=== PATIENT | female | born 1985 | race Caucasian/White ===

== ENCOUNTER 2019-06-23 11:56 | Day surgery (SDC) | payer OTHER ==
[2019-06-22 15:58] LABS: BASOPHILS ABSOLUTE AUTO 0.02 K/mm3 (0.00-0.23); BASOPHILS PERCENT AUTO 0 % (0-2); EOSINOPHILS ABSOLUTE AUTO 0.28 K/mm3 (0.00-0.68); EOSINOPHILS PERCENT AUTO 5 % (0-6); Hematocrit 35.1 % (33.0-51.0); Hemoglobin 11.8 g/dL (11.5-16.0); IMMATURE GRAN ABSOLUTE AUTO 0.01 K/mm3 (0.00-0.10); IMMATURE GRAN PERCENT AUTO 0 % (0-1); LYMPHOCYTES ABSOLUTE AUTO 1.82 K/mm3 (0.84-5.20); LYMPHOCYTES PERCENT AUTO 30 % (21-46); MONOCYTES ABSOLUTE AUTO 0.43 K/mm3 (0.16-1.47); MONOCYTES PERCENT AUTO 7 % (4-13); Mean Corpuscular HGB 29.6 pg (26.0-34.0); Mean Corpuscular HGB Conc 33.6 g/dL (31.5-36.5); Mean Corpuscular Volume 88 fL (80-100); Mean Platelet Volume 11.2 fL (9.1-12.4); NEUTROPHILS ABSOLUTE AUTO 3.49 K/mm3 (1.96-9.15); NEUTROPHILS PERCENT AUTO 58 % (41-73); Platelet Count 178 K/mm3 (150-400); RDW Coefficient Variation 14.3 % (11.7-14.2); RDW Standard Deviation 45.5 fL (35.1-46.3); Red Blood Cell Count 3.98 M/mm3 (3.80-5.20); White Blood Cell Count 6.05 K/mm3 (4.00-11.30)
[~2019-06-23] VITALS: Ht 149.9 cm; Wt 64.0 kg
[~2019-06-23 11:56] MED LIST: PRAZ1 PO; PRENATAL TABLE1 EAC2 PO; Venlafaxine HCl75 M1 PO
--- NOTE | 2019-06-23 12:52 | NUR ---
Ambulatory in Day Surgery. History, Chart, Medications and Allergies reviewed before start of procedure. Lungs clear T/O to Auscultation. Patient confirms NPO status and agrees with scheduled surgery. Pre-Op teaching done. Pt verbalizes understanding. Patient States Post-Procedure ride home has been arranged.
--- NOTE | 2019-06-23 14:50 | NUR ---
06/23/19 1450 Teto Peralta IV INFILTRATED IN LEFT AC. A NEW IV WAS STARTED BY THIS RN IN RIGHT WRIST 18G. PT TOLERATED THIS WELL.
--- NOTE | 2019-06-23 16:17 | NUR ---
PT UP TO VOID WITHOUT DIFFICULTY.Patient up to Ambulate independently. Gait steady. Discharge instructions reviewed with patient. Patient verbalizes understanding. Copy given to patient to take home. Dressing to procedure site clean, dry, intact with no visible drainage, swelling, erythema or bruising noted. Patient States Post-Procedure ride home has been arranged. Discharged via wheelchair to private car for ride home. ALL BELONINGS RETURNED TO PATIENT.
[2019-07-21] MEDS ORDERED: VENLAFAXINE HC150 MG PO (14:06)
[2019-07-21] MEDS ORDERED: [UNRECOGNIZED DRUG - OTHER] PO (14:06)
[2019-07-21] MEDS ORDERED: PRAZ5 PO (14:06)
[2019-07-21] MEDS ORDERED: PRAZ1 PO (14:07)
== END 2019-06-23 22:59 | disposition home or self-care (01) ==
LOC: ORSCMMR 11:56
PROVIDERS: Obstetrics & Gynecology
PROC: 10A07Z6 Abortion of Products of Conception, Vacuum, Via Natural or Artificial Opening (ICD-10-PCS; principal; 2019-06-23 13:45)
DX: O02.1 Missed abortion (principal); J45.909 Unspecified asthma, uncomplicated; F17.210 Nicotine dependence, cigarettes, uncomplicated; Z79.899 Other long term (current) drug therapy
CPT/HCPCS: 36415; 85025; 86850; 86900; 86901; 88305; J0690; J1100; J1885; J2210; J2250; J2405; J2704; J3010; J7120

== ENCOUNTER 2019-08-02 10:54 | Day surgery (SDC) | payer OTHER ==
[~2019-08-02] VITALS: Ht 149.9 cm; Wt 63.3 kg
[~2019-08-02 10:54] MED LIST changes: +PRAZ5 PO; +VENLAFAXINE HC150 MG PO; +[UNRECOGNIZED DRUG - OTHER] PO
--- NOTE | 2019-08-02 13:03 | NUR ---
08/02/19 1302 Irais Baltazar [facility].JAR LOWER PREP-POG ORSC.JJW UPPER PREP DURAPREP
--- NOTE | 2019-08-02 14:19 | NUR ---
08/02/19 1419 Sandy Munguia PT TRANSFERRED FROM [facility] TO [facility] WITHOUT DIFFICULTY. PT TOLERATING PO FLUIDS. PAIN TOLERABLE AFTER 2 DOSES OF FENTANYL 25MG. CALLING PATIENT'S FAMILY AT THIS TIME FOR RIDE HOME.
== END 2019-08-02 14:54 | disposition home or self-care (01) ==
LOC: ORSCSDS 10:54
PROVIDERS: Obstetrics & Gynecology
PROC: 0UT74ZZ Resection of Bilateral Fallopian Tubes, Percutaneous Endoscopic Approach (ICD-10-PCS; principal; 2019-08-02 12:15)
DX: Z30.2 Encounter for sterilization (principal); N80.3 Endometriosis of pelvic peritoneum; K66.0 Peritoneal adhesions (postprocedural) (postinfection); J45.909 Unspecified asthma, uncomplicated; F17.210 Nicotine dependence, cigarettes, uncomplicated; F43.10 Post-traumatic stress disorder, unspecified; Z79.899 Other long term (current) drug therapy
CPT/HCPCS: 84703; 88302; J0171; J0690; J1100; J1885; J2250; J2405; J2704; J2710; J3010; J7120

== ENCOUNTER → 2020-03-13 | Outpatient (CLI) | payer OTHER ==
[2020-03-13 13:32] LABS: BASOPHILS ABSOLUTE AUTO 0.04 K/mm3 (0.00-0.23); BASOPHILS PERCENT AUTO 1 % (0-2); EOSINOPHILS ABSOLUTE AUTO 0.26 K/mm3 (0.00-0.68); EOSINOPHILS PERCENT AUTO 5 % (0-6); Hematocrit 36.2 % (33.0-51.0); Hemoglobin 11.5 g/dL (11.5-16.0); IMMATURE GRAN ABSOLUTE AUTO 0.01 K/mm3 (0.00-0.10); IMMATURE GRAN PERCENT AUTO 0 % (0-1); LYMPHOCYTES ABSOLUTE AUTO 2.06 K/mm3 (0.84-5.20); LYMPHOCYTES PERCENT AUTO 38 % (21-46); MONOCYTES ABSOLUTE AUTO 0.42 K/mm3 (0.16-1.47); MONOCYTES PERCENT AUTO 8 % (4-13); Mean Corpuscular HGB 26.2 pg (26.0-34.0); Mean Corpuscular HGB Conc 31.8 g/dL (31.5-36.5); Mean Corpuscular Volume 83 fL (80-100); Mean Platelet Volume 11.2 fL (9.1-12.4); NEUTROPHILS ABSOLUTE AUTO 2.66 K/mm3 (1.96-9.15); NEUTROPHILS PERCENT AUTO 49 % (41-73); Platelet Count 272 K/mm3 (150-400); RDW Coefficient Variation 14.4 % (11.7-14.2); RDW Standard Deviation 43.1 fL (35.1-46.3); Red Blood Cell Count 4.39 M/mm3 (3.80-5.20); White Blood Cell Count 5.45 K/mm3 (4.00-11.30)
[2020-03-13 14:45] LABS: Very Low Density Lipoprot Chol 39 mg/dL (6-28)
[2020-03-13 15:06] LABS: Alanine Aminotransfer (ALT/SGP 17 U/L (12-78); Albumin, Blood 3.6 g/dL (3.4-5.0); Albumin/Globulin Ratio 0.9 (0.8-1.8); Alk Phos 90 U/L (50-136); Anion Gap 6 mmol/L (6-16); Aspartate Aminotrans (AST/SGOT 13 U/L (12-37); Bilirubin, Total 0.2 mg/dL (0.1-1.0); Blood Urea Nitrogen 15 mg/dL (8-24); Bun/Creatinine Ratio 25.4 (12.0-20.0); CHOL/HDL RATIO 4.9; CO2, Blood 23 mmol/L (21-32); Calcium, Blood 8.5 mg/dL (8.5-10.1); Chloride, Blood 109 mmol/L (98-108); Cholesterol 163 mg/dL (50-200); Creatinine, Blood 0.59 mg/dL (0.40-1.00); Globulin, Blood 4.1 g/dL (2.2-4.0); Glomerular Filtration Rate >60 (60-); Glucose, Blood 85 mg/dL (70-99); HDL Cholesterol 33 mg/dL (>39); LDL/HDL RATIO 2.7; Low Density Lipoprotein Chol 91 mg/dL (0-110); Potassium, Blood 4.1 mmol/L (3.5-5.5); Sodium, Blood 138 mmol/L (136-145); Total Protein, Blood 7.7 g/dL (6.4-8.2); Triglycerides 197 mg/dL (30-140)
== END ==
LOC: LAB SHORT 12:51 → LAB 12:51
PROVIDERS: Physician Assistant
DX: Z13.29 Encounter for screening for other suspected endocrine disorder (principal); E78.5 Hyperlipidemia, unspecified; F32.9 Major depressive disorder, single episode, unspecified
CPT/HCPCS: 80053; 80061; 82306; 84443; 85025

== ENCOUNTER 2022-06-02 21:48 | Emergency (ER) | payer BC ==
[~2022-06-02] VITALS: Ht 149.9 cm; Wt 63.5 kg
[2022-06-02] MEDS ORDERED: Percocet 5-3251 EACH PO (23:34)
[2022-06-02] MEDS ORDERED: CRUTCH2 XX (23:36)
== END 2022-06-03 | disposition home or self-care (01) ==
LOC: ER 21:48
DX: S82.51XA Displaced fracture of medial malleolus of right tibia, initial encounter for closed fracture (principal); F17.200 Nicotine dependence, unspecified, uncomplicated; X58.XXXA Exposure to other specified factors, initial encounter; Z79.899 Other long term (current) drug therapy
CPT/HCPCS: A9270

== ENCOUNTER 2022-06-07 11:33 | Day surgery (SDC) | payer BC, OTHER ==
[~2022-06-07] VITALS: Ht 149.9 cm; Wt 62.7 kg
[~2022-06-07 11:33] MED LIST changes: +CRUTCH2 XX; +Percocet 5-3251 EACH PO
[2022-06-07] MEDS ORDERED: Prozac40 MG PO (12:28)
[2022-06-07] MEDS ORDERED: IBUP400 PO (12:29)
--- NOTE | 2022-06-07 13:15 | NUR ---
06/07/22 1315 Federico Jane ROPIVACAINE 0.5% 30 MLS MIXED & VERIFIED IN OR BY RN W/ 0.15 ML EPI PER ORDER TO MAKE ROPIVACAINE 0.5% 1:200,000 FOR INJECTION AT OPSITE BY DR BERGERON. 30 MLS INJECTED.
--- NOTE | 2022-06-07 15:52 | NUR ---
06/07/22 1552 Reg Townsend A TOTAL OF 75 MCG FENTANYL PIVEN FOR PAIN CONTROL PRIOR TO DISCHARGE - SEE VS.
== END 2022-06-07 15:54 | disposition home or self-care (01) ==
LOC: ORSCSDS 11:33
PROVIDERS: Podiatrist Foot & Ankle Surgery
PROC: 0QSJ04Z Reposition Right Fibula with Internal Fixation Device, Open Approach (ICD-10-PCS; principal; 2022-06-07 13:00)
PROC: 0QSG04Z Reposition Right Tibia with Internal Fixation Device, Open Approach (ICD-10-PCS; principal; 2022-06-07 13:00)
DX: S82.841A Displaced bimalleolar fracture of right lower leg, initial encounter for closed fracture (principal); J45.909 Unspecified asthma, uncomplicated; F17.210 Nicotine dependence, cigarettes, uncomplicated; Z86.16 Personal history of COVID-19; F41.8 Other specified anxiety disorders; Z79.899 Other long term (current) drug therapy
CPT/HCPCS: A9270; C1713; C1769; J0171; J0690; J1100; J1885; J2250; J2405; J2704; J2795; J3010; J7120

== ENCOUNTER → 2023-05-09 | Outpatient (CLI) | payer BC ==
[~2023-05-09] MED LIST changes: +IBUP400 PO; +Prozac40 MG PO
[2023-05-09 06:39] LABS: BASOPHILS ABSOLUTE AUTO 0.03 K/mm3 (0.00-0.23); BASOPHILS PERCENT AUTO 0 % (0-2); EOSINOPHILS ABSOLUTE AUTO 0.27 K/mm3 (0.00-0.68); EOSINOPHILS PERCENT AUTO 4 % (0-6); Hematocrit 31.9 % (33.0-51.0); IMMATURE GRAN ABSOLUTE AUTO 0.01 K/mm3 (0.00-0.10); IMMATURE GRAN PERCENT AUTO 0 % (0-1); LYMPHOCYTES ABSOLUTE AUTO 2.51 K/mm3 (0.84-5.20); LYMPHOCYTES PERCENT AUTO 37 % (21-46); MONOCYTES ABSOLUTE AUTO 0.51 K/mm3 (0.16-1.47); MONOCYTES PERCENT AUTO 8 % (4-13); Mean Corpuscular HGB 23.5 pg (26.0-34.0); Mean Corpuscular HGB Conc 31.3 g/dL (31.5-36.5); Mean Corpuscular Volume 75 fL (80-100); Mean Platelet Volume 10.4 fL (9.1-12.4); NEUTROPHILS ABSOLUTE AUTO 3.38 K/mm3 (1.96-9.15); NEUTROPHILS PERCENT AUTO 51 % (41-73); Platelet Count 271 K/mm3 (150-400); RDW Coefficient Variation 16.7 % (11.7-14.2); RDW Standard Deviation 45.1 fL (35.1-46.3); Red Blood Cell Count 4.26 M/mm3 (3.80-5.20); White Blood Cell Count 6.71 K/mm3 (4.00-11.30)
[2023-05-09 07:03] LABS: Alanine Aminotransfer (ALT/SGP 20 U/L (12-78); Albumin, Blood 3.6 g/dL (3.4-5.0); Albumin/Globulin Ratio 0.9 (0.8-1.8); Alk Phos 95 U/L (50-136); Anion Gap 4 mmol/L (6-16); Aspartate Aminotrans (AST/SGOT 18 U/L (12-37); Bilirubin, Total 0.1 mg/dL (0.1-1.0); Blood Urea Nitrogen 13 mg/dL (8-24); Bun/Creatinine Ratio 17.1 (12.0-20.0); CHOL/HDL RATIO 4.5; CO2, Blood 25 mmol/L (21-32); Calcium, Blood 8.8 mg/dL (8.5-10.1); Chloride, Blood 111 mmol/L (98-108); Cholesterol 194 mg/dL (50-200); Creatinine, Blood 0.76 mg/dL (0.40-1.00); Free Thyroxine 0.74 ng/dL (0.70-1.60); Glomerular Filtration Rate 103 (60-); Glucose, Blood 88 mg/dL (70-99); HDL Cholesterol 43 mg/dL (>39); Low Density Lipoprotein Chol 129 mg/dL (0-110); Potassium, Blood 4.2 mmol/L (3.5-5.5); Sodium, Blood 140 mmol/L (136-145); Total Protein, Blood 7.6 g/dL (6.4-8.2); Triglycerides 110 mg/dL (30-140); Very Low Density Lipoprot Chol 22 mg/dL (6-28)
[2023-05-09 07:10] LABS: Triiodothyronine, Free 2.31 pg/mL (2.18-3.98)
== END ==
LOC: LAB SHORT 06:15 → LAB 06:15
PROVIDERS: Nurse Practitioner Family
DX: F32.9 Major depressive disorder, single episode, unspecified (principal); E78.5 Hyperlipidemia, unspecified; R94.6 Abnormal results of thyroid function studies
CPT/HCPCS: 36415; 80053; 80061; 84439; 84443; 84481; 85025

== ENCOUNTER → 2023-05-29 | Outpatient (CLI) | payer BC ==
[2023-05-29 08:35] LABS: BASOPHILS ABSOLUTE AUTO 0.05 K/mm3 (0.00-0.23); BASOPHILS PERCENT AUTO 1 % (0-2); EOSINOPHILS ABSOLUTE AUTO 0.36 K/mm3 (0.00-0.68); EOSINOPHILS PERCENT AUTO 4 % (0-6); Hematocrit 33.8 % (33.0-51.0); Hemoglobin 10.6 g/dL (11.5-16.0); IMMATURE GRAN ABSOLUTE AUTO 0.03 K/mm3 (0.00-0.10); IMMATURE GRAN PERCENT AUTO 0 % (0-1); LYMPHOCYTES ABSOLUTE AUTO 2.93 K/mm3 (0.84-5.20); LYMPHOCYTES PERCENT AUTO 29 % (21-46); MONOCYTES ABSOLUTE AUTO 0.63 K/mm3 (0.16-1.47); MONOCYTES PERCENT AUTO 6 % (4-13); Mean Corpuscular HGB 23.7 pg (26.0-34.0); Mean Corpuscular HGB Conc 31.4 g/dL (31.5-36.5); Mean Corpuscular Volume 76 fL (80-100); Mean Platelet Volume 10.4 fL (9.1-12.4); NEUTROPHILS ABSOLUTE AUTO 6.15 K/mm3 (1.96-9.15); NEUTROPHILS PERCENT AUTO 61 % (41-73); Platelet Count 321 K/mm3 (150-400); RDW Coefficient Variation 17.1 % (11.7-14.2); RDW Standard Deviation 46.2 fL (35.1-46.3); Red Blood Cell Count 4.47 M/mm3 (3.80-5.20); White Blood Cell Count 10.15 K/mm3 (4.00-11.30)
[2023-05-29 08:54] LABS: Bun/Creatinine Ratio 17.6 (12.0-20.0); Calcium, Blood 8.8 mg/dL (8.5-10.1); Creatinine, Blood 0.8 mg/dL (0.40-1.00); Potassium, Blood 3.6 mmol/L (3.5-5.5)
== END | disposition home or self-care (01) ==
LOC: LAB 08:19 → LAB SHORT 08:19
PROVIDERS: Podiatrist Foot & Ankle Surgery
DX: Z01.812 Encounter for preprocedural laboratory examination (principal); T84.84XA Pain due to internal orthopedic prosthetic devices, implants and grafts, initial encounter; M79.673 Pain in unspecified foot; R60.0 Localized edema
CPT/HCPCS: 36415; 80048; 85025

== ENCOUNTER 2023-06-09 10:05 | Day surgery (SDC) | payer BC ==
[~2023-06-09] VITALS: Ht 149.9 cm; Wt 70.1 kg
[2023-06-09] MEDS ORDERED: VILAZODONE HCL40 MG PO (10:43)
[2023-06-09] MEDS ORDERED: HYDHCL25 (10:44)
[2023-06-09 13:27] VITALS: BP 106/75
--- NOTE | 2023-06-09 14:30 | NUR ---
06/09/23 1430 Reg Townsend pt provided analgesia including fentanyl 25mcg iv and norco 5/325 one tab she expressed benefit with pain treatment and was discharged with 3/10 right foot discomfort which sh found tolerable
== END 2023-06-09 14:20 | disposition home or self-care (01) ==
LOC: ORSCSDS 10:05
PROVIDERS: Podiatrist Foot & Ankle Surgery
PROC: 0SPF04Z Removal of Internal Fixation Device from Right Ankle Joint, Open Approach (ICD-10-PCS; principal; 2023-06-09 11:30)
DX: T84.84XA Pain due to internal orthopedic prosthetic devices, implants and grafts, initial encounter (principal); S82.841D Displaced bimalleolar fracture of right lower leg, subsequent encounter for closed fracture with routine healing; J45.909 Unspecified asthma, uncomplicated; F17.210 Nicotine dependence, cigarettes, uncomplicated; F41.8 Other specified anxiety disorders; Z79.899 Other long term (current) drug therapy
CPT/HCPCS: A9270; J0171; J0690; J1100; J1885; J2250; J2405; J2704; J2795; J3010; J7120

== ENCOUNTER → 2023-11-13 | Outpatient (CLI) | payer BC ==
[~2023-11-13] MED LIST changes: +HYDHCL25; +VILAZODONE HCL40 MG PO
[2023-11-13 14:33] LABS: BASOPHILS ABSOLUTE AUTO 0.06 K/mm3 (0.00-0.23); BASOPHILS PERCENT AUTO 1 % (0-2); EOSINOPHILS ABSOLUTE AUTO 0.31 K/mm3 (0.00-0.68); EOSINOPHILS PERCENT AUTO 3 % (0-6); Hematocrit 32.1 % (33.0-51.0); Hemoglobin 10.3 g/dL (11.5-16.0); IMMATURE GRAN ABSOLUTE AUTO 0.04 K/mm3 (0.00-0.10); IMMATURE GRAN PERCENT AUTO 0 % (0-1); LYMPHOCYTES ABSOLUTE AUTO 3.48 K/mm3 (0.84-5.20); LYMPHOCYTES PERCENT AUTO 30 % (21-46); MONOCYTES ABSOLUTE AUTO 1.03 K/mm3 (0.16-1.47); MONOCYTES PERCENT AUTO 9 % (4-13); Mean Corpuscular HGB 23.5 pg (26.0-34.0); Mean Corpuscular HGB Conc 32.1 g/dL (31.5-36.5); Mean Corpuscular Volume 73 fL (80-100); Mean Platelet Volume 10.6 fL (9.1-12.4); NEUTROPHILS ABSOLUTE AUTO 6.89 K/mm3 (1.96-9.15); NEUTROPHILS PERCENT AUTO 58 % (41-73); Platelet Count 292 K/mm3 (150-400); RDW Coefficient Variation 16.6 % (11.7-14.2); RDW Standard Deviation 43.8 fL (35.1-46.3); Red Blood Cell Count 4.39 M/mm3 (3.80-5.20); White Blood Cell Count 11.81 K/mm3 (4.00-11.30)
[2023-11-13 14:54] LABS: Percent Saturation 9.1 % (15.0-50.0)
== END ==
LOC: LAB 14:17 → LAB SHORT 14:17
PROVIDERS: Nurse Practitioner Family
DX: D64.9 Anemia, unspecified (principal)
CPT/HCPCS: 82728; 83540; 83550; 85025

== ENCOUNTER 2024-09-23 08:14 | Day surgery (SDC) | payer BC ==
[~2024-09-23] VITALS: Ht 149.9 cm; Wt 70.8 kg
[~2024-09-23 08:14] MED LIST changes: +BUSPIRONE HCL7.5 M1 PO; +EMTRICITABINE-1 EAC1 PO; +HYDHCL25 PO; +Lactated Ringer's 1,000 ML IV ONE; +RALT400 PO; +TRAZ50 PO; +[UNRECOGNIZED DRUG - OTHER] PO
[2024-09-23] MEDS ORDERED: IBUP200 PO (08:35)
[2024-09-23] MEDS ORDERED: ALLEGRA ALLERG180 MG PO (08:37)
[2024-09-23] MEDS ORDERED: IRON (08:38)
[2024-09-23] MEDS ORDERED: [UNRECOGNIZED DRUG - OTHER] (08:38)
[2024-09-23] MEDS ORDERED: NS 50 ML IV ONE (08:39)
[2024-09-23] MEDS ORDERED: CeFAZolin Sodium 2,000 MG VIAL ONE (08:39)
[2024-09-23] MEDS ORDERED: Lactated Ringer's 1,000 ML IV ONE (08:44)
[2024-09-23] MEDS ORDERED: FentaNYL Citrate 50 MCG/ML 2 ML Injection ONE (09:00)
[2024-09-23] MEDS ORDERED: Ketorolac Tromethamine 30mg Vial ONE (09:00)
[2024-09-23] MEDS ORDERED: Dexamethasone Sod Phos 10 MG/ML 1ML VIAL ONE (09:00)
[2024-09-23] MEDS ORDERED: propofoL 20 ML IV ONE (09:00)
[2024-09-23] MEDS ORDERED: Ondansetron HCl 2 MG / ML 2ML Vial ONE (09:00)
--- NOTE | 2024-09-23 10:24 | NUR ---
09/23/24 1024 Inés Moore ENDOMETRIAL ABLATION: 6.0 CM X 4.3 CM, 142 MERLOS, TIME 0:55
[2024-09-23 11:10] VITALS: BP 106/71
== END 2024-09-23 11:33 | disposition home or self-care (01) ==
LOC: ORSCSDS 08:14
PROVIDERS: Obstetrics & Gynecology
PROC: 0U5B8ZZ Destruction of Endometrium, Via Natural or Artificial Opening Endoscopic (ICD-10-PCS; principal; 2024-09-23 10:00)
DX: N92.0 Excessive and frequent menstruation with regular cycle (principal); N94.6 Dysmenorrhea, unspecified; D50.0 Iron deficiency anemia secondary to blood loss (chronic); N80.9 Endometriosis, unspecified; F17.210 Nicotine dependence, cigarettes, uncomplicated; F41.9 Anxiety disorder, unspecified; Z79.899 Other long term (current) drug therapy; E66.9 Obesity, unspecified; Z68.31 Body mass index [BMI] 31.0-31.9, adult
CPT/HCPCS: 88305; J0690; J1100; J1885; J2405; J2704; J3010; J7120